=== PATIENT | female | born 1945 | race Hispanic/Latino ===

== ENCOUNTER 2020-08-24 14:31 | Observation (INO) | payer MEDICARE ==
[~2020-08-24] VITALS: Ht 157.5 cm; Wt 71.7 kg
[2020-08-24] MEDS ORDERED: MECLIZINE HCL 12.5 MG TAB PO ONE (15:30)
[2020-08-24 15:56] LABS: BASOPHILS % 0.3 % (0.0-1.0); EOSINOPHILS % 0.3 % (0.0-6.0); LYMPHOCYTES # (AUTO) 1.3 (1.0-3.2); LYMPHOCYTES % 12.7 % (18.0-39.1); MEAN CORPUSCULAR HEMOGLOBIN 29.8 pg (28-32); MEAN CORPUSCULAR HGB CONC 33.3 g/dL (31-35); MEAN CORPUSCULAR VOLUME 89.4 fL (81-99); MONOCYTES # (AUTO) 0.4 (0.2-0.8); MONOCYTES % 4.1 % (4.4-11.3); NEUTROPHILS # (AUTO) 8.7 (2.1-6.9); NEUTROPHILS % 82.3 % (38.7-80.0); PLATELET COUNT 192 x10e3/uL (140-360); RED CELL DISTRIBUTION WIDTH 12.8 % (11.7-14.4)
[2020-08-24 16:16] LABS: ALBUMIN 4.2 g/dL (3.5-5.0); ALBUMIN/GLOBULIN RATIO 1.2 (0.8-2.0); ANION GAP 18.8 mmol/L (8-16); CALCIUM 9.4 mg/dL (8.4-10.2); CREATININE, SERUM 1.3 mg/dL (0.57-1.11); POTASSIUM 4.8 mmol/L (3.5-5.1)
[2020-08-24] MEDS: SODIUM CHLORIDE 0.9% 1000ML 1,000 ML IV SCH (17:27)
[2020-08-24] MEDS ORDERED: CILOSTAZOL50 MG PO (17:39)
[2020-08-24] MEDS ORDERED: GABAPENTIN300 MG PO (17:39)
[2020-08-24] MEDS ORDERED: ARIMIDEX1 MG PO (17:39)
[2020-08-24] MEDS ORDERED: AMLODIPINE BESYL5 MG PO (17:39)
[2020-08-24] MEDS ORDERED: LO-DOSE ASPIRIN81 MG PO (17:39)
[2020-08-24] MEDS ORDERED: TRESIBA FL200 UNIT/1 SQ (17:39)
[2020-08-24] MEDS ORDERED: METOPROLOL TART50 MG PO (17:39)
[2020-08-24] MEDS ORDERED: CLOPIDOGREL75 MG PO (17:39)
[2020-08-24] MEDS ORDERED: DEXTROSE 50% SYRINGE 50 ML IV PRN (17:45)
[2020-08-24] MEDS ORDERED: ACETAMINOPHEN 325 MG TAB PO PRN (17:45)
[2020-08-24] MEDS ORDERED: DOCUSATE SODIUM 100 MG CAP PO PRN (17:45)
[2020-08-24 17:59] LABS: CHOL/HDL RATIO 2.5 (3.0-3.6)
[2020-08-24] MEDS ORDERED: JANUVIA50 MG PO (18:16)
[2020-08-24] MEDS ORDERED: LOSARTAN POTAS100 MG PO (18:16)
[2020-08-24] MEDS ORDERED: METFORMIN HCL500 MG PO (18:16)
[2020-08-24 21:00] VITALS: BP_SYST 148; BP_SYST 184; BP_DIAS 68; BP_DIAS 80
[2020-08-24] MEDS ORDERED: ZOLPIDEM TARTRATE 5 MG TAB PO PRN (21:00)
[2020-08-24] MEDS: INSULIN REGULAR, HUMAN 100 UNIT/1 ML 3ML VIAL SQ SCH (21:30)
[2020-08-24 21:47] VITALS: BP 184/80
[2020-08-24 22:00] VITALS: BP 184/80
[2020-08-24 22:08] VITALS: BP 148/68
[2020-08-24] MEDS: MECLIZINE HCL 12.5 MG TAB PO SCH (22:48)
[2020-08-25] VITALS (8 sets, daily range): BP systolic 130–190; BP diastolic 62–85
[2020-08-25] MEDS: SODIUM CHLORIDE 0.9% 1000ML 1,000 ML IV SCH ×3 (05:09→21:36)
[2020-08-25] MEDS: MECLIZINE HCL 12.5 MG TAB PO SCH ×3 (05:35→22:00)
[2020-08-25 05:59] LABS: BASOPHILS % 0.5 % (0.0-1.0); EOSINOPHILS # (AUTO) 0.2 (0.0-0.4); EOSINOPHILS % 2.3 % (0.0-6.0); HEMATOCRIT 38.4 % (34.2-44.1); HEMOGLOBIN 12.5 g/dL (12.0-16.0); LYMPHOCYTES # (AUTO) 1.9 (1.0-3.2); LYMPHOCYTES % 24.3 % (18.0-39.1); MEAN CORPUSCULAR HEMOGLOBIN 29.2 pg (28-32); MEAN CORPUSCULAR HGB CONC 32.6 g/dL (31-35); MEAN CORPUSCULAR VOLUME 89.7 fL (81-99); MONOCYTES # (AUTO) 0.7 (0.2-0.8); MONOCYTES % 8.7 % (4.4-11.3); NEUTROPHILS % 63.9 % (38.7-80.0); PLATELET COUNT 199 x10e3/uL (140-360); RED BLOOD COUNT 4.28 x10e6/uL (3.6-5.1); RED CELL DISTRIBUTION WIDTH 12.4 % (11.7-14.4)
[2020-08-25 06:33] LABS: ANION GAP 12.4 mmol/L (8-16); CALCIUM 8.7 mg/dL (8.4-10.2); CREATININE, SERUM 0.94 mg/dL (0.57-1.11); POTASSIUM 4.4 mmol/L (3.5-5.1)
[2020-08-25] MEDS: INSULIN REGULAR, HUMAN 100 UNIT/1 ML 3ML VIAL SQ SCH ×4 (07:30→21:00)
[2020-08-25 07:32] LABS: MAGNESIUM 1.9 MG/DL (1.3-2.1); PHOSPHORUS 4.5 MG/DL (2.3-4.7)
[2020-08-25] MEDS ORDERED: Meclizine Hcl PO (13:38)
[2020-08-25] MEDS ORDERED: METOPROLOL TARTRATE 50 MG TAB PO ONE (20:45)
[2020-08-25] MEDS ORDERED: LOSARTAN POTASSIUM 100 MG TAB PO ONE (20:45)
[2020-08-25] MEDS ORDERED: AMLODIPINE BESYLATE 10 MG TAB PO ONE (20:45)
[2020-08-26 00:24] VITALS: BP 123/55
[2020-08-26 05:24] VITALS: BP 135/68
[2020-08-26 06:34] LABS: BASOPHILS % 0.4 % (0.0-1.0); EOSINOPHILS # (AUTO) 0.2 (0.0-0.4); EOSINOPHILS % 2.1 % (0.0-6.0); HEMATOCRIT 39.1 % (34.2-44.1); HEMOGLOBIN 13.2 g/dL (12.0-16.0); LYMPHOCYTES # (AUTO) 1.6 (1.0-3.2); LYMPHOCYTES % 20.6 % (18.0-39.1); MEAN CORPUSCULAR HEMOGLOBIN 30.1 pg (28-32); MEAN CORPUSCULAR HGB CONC 33.8 g/dL (31-35); MEAN CORPUSCULAR VOLUME 89.3 fL (81-99); MONOCYTES # (AUTO) 0.6 (0.2-0.8); MONOCYTES % 7.5 % (4.4-11.3); NEUTROPHILS # (AUTO) 5.2 (2.1-6.9); NEUTROPHILS % 69.1 % (38.7-80.0); PLATELET COUNT 190 x10e3/uL (140-360); RED BLOOD COUNT 4.38 x10e6/uL (3.6-5.1); RED CELL DISTRIBUTION WIDTH 12.5 % (11.7-14.4)
[2020-08-26] MEDS: MECLIZINE HCL 12.5 MG TAB PO SCH ×2 (06:44→14:48)
[2020-08-26 07:11] LABS: MAGNESIUM 1.8 MG/DL (1.3-2.1); PHOSPHORUS 3.8 MG/DL (2.3-4.7)
[2020-08-26 07:24] LABS: ANION GAP 12.4 mmol/L (8-16); BLOOD UREA NITROGEN 18 mg/dL (7-26); BUN/CREATININE RATIO 21 (6-25); CALCIUM 8.9 mg/dL (8.4-10.2); CARBON DIOXIDE 27 mmol/L (22-29); CHLORIDE 106 mmol/L (98-107); CREATININE, SERUM 0.86 mg/dL (0.57-1.11); EST GLOMERULAR FILTRATION RATE > 60 ML/MIN (60-); GLUCOSE 185 mg/dL (74-118); POTASSIUM 4.4 mmol/L (3.5-5.1); SODIUM 141 mmol/L (136-145)
[2020-08-26 09:00] VITALS: BP 149/63
[2020-08-26] MEDS ORDERED: LOSARTAN POTASSIUM 100 MG TAB PO SCH (09:00)
[2020-08-26] MEDS ORDERED: METOPROLOL TARTRATE 50 MG TAB PO SCH (09:00)
[2020-08-26] MEDS ORDERED: AMLODIPINE BESYLATE 5 MG TAB PO SCH (09:00)
[2020-08-26] MEDS: INSULIN REGULAR, HUMAN 100 UNIT/1 ML 3ML VIAL SQ SCH ×3 (09:12→17:47)
[2020-08-26 09:24] VITALS: BP 149/63
[2020-08-26] MEDS: SODIUM CHLORIDE 0.9% 1000ML 1,000 ML IV SCH (10:05)
[2020-08-26 12:28] VITALS: BP 123/84
[2020-08-26 17:08] VITALS: BP 148/69
== END 2020-08-26 17:45 | disposition home or self-care (01) ==
LOC: ER 15:30 → ERHOLD 16:58 → MED/SURG3 20:49
PROVIDERS: ADMIT Internal Medicine; ATTEND Internal Medicine
DX: H81.10 Benign paroxysmal vertigo, unspecified ear (principal); E11.9 Type 2 diabetes mellitus without complications; I25.10 Atherosclerotic heart disease of native coronary artery without angina pectoris; Z95.1 Presence of aortocoronary bypass graft; N17.9 Acute kidney failure, unspecified; Z20.822 Contact with and (suspected) exposure to COVID-19
CPT/HCPCS: 36415 ×3; 70450; 80048 ×2; 80053; 80061; 82948 ×3; 83036; 83735 ×2; 84100 ×2; 84484; 85025 ×3; 93005; 93306; 99284; G0378 ×3; J1817 ×2; J7030 ×2; J8597 ×3; U0002